=== PATIENT | male | born 1960 | race Caucasian/White ===

== ENCOUNTER 2017-07-04 10:23 | Emergency (ER) | payer SELFPAY ==
[2017-07-04] MEDS ORDERED: methylPREDNISolone Sod Succ/PF 125 MG/2 ML VIAL ONE (10:59)
[2017-07-04] MEDS ORDERED: Acetaminophen 325 MG TAB ONE (10:59)
[2017-07-04 11:10] LABS: #Basophils 0.2 thou/uL (0.0-0.2); #Lymphocytes 0.9 thou/uL (1.20-3.40); #Monocytes 0.7 thou/uL (0.11-0.59); #Neutrophils 15.7 thou/uL (1.40-6.50); %Basophils 1.4 % (0.0-1.0); %Lymphocytes 5.1 % (21.0-51.0); %Monocytes 3.7 % (0.0-10.0); %Neutrophils 89.7 % (42.0-75.0); Hemoglobin 15.9 g/dL (14.0-18.0); Mean Corpuscular HGB CONC 33.6 g/dL (32.0-36.0); Mean Corpuscular Hemoglobin 29.7 pg (27.0-31.0); Mean Corpuscular Volume 88.5 fl (80.0-94.0); Mean Platelet Volume 6.4 fL (7.4-10.4); Platelet Count 247 thou/uL (130-400); RBC Distribution Width 11.3 % (11.5-14.5); Red Blood Cell (RBC) Count 5.35 mill/uL (4.70-6.10); White Blood Cell (WBC) Count 17.5 thou/uL (4.8-10.8)
[2017-07-04 11:18] LABS: pH (venous) 7.45 (7.35-7.45)
[2017-07-04 11:19] LABS: Base Excess -1.1 mEq/L (-2 - +2); Hemoglobin (Hb) 16.5 g/dL (13.1-17.2)
[2017-07-04 11:21] LABS: ALT (SGPT) 15 U/L (8-55); AST (SGOT) 14 U/L (5-34); Albumin 3.8 g/dL (3.5-5.0); Alkaline Phosphatase 83 U/L (40-150); Anion Gap 16 mmol/L (10-20); BUN (Urea Nitrogen) 9 mg/dL (8.4-25.7); Bilirubin, Total 0.8 mg/dL (0.2-1.2); Calc. Creatinine Clearance 0 mL/min (70-130); Calcium 9.1 mg/dL (7.8-10.44); Carbon Dioxide 22 mmol/L (22-29); Chloride 99 mmol/L (98-107); Estimated GFR-MDRD 89; Globulin 3.5 g/dL (2.4-3.5); Glucose 118 mg/dL (70-105); Potassium 3.3 mmol/L (3.5-5.1); Protein, Total 7.3 g/dL (6.0-8.3); Sodium 134 mmol/L (136-145)
[2017-07-04 11:25] LABS: CKMB 0.3 ng/mL (0-6.6); Troponin I Less than 0.010 ng/mL (< 0.028)
[2017-07-04] MEDS ORDERED: Azithromycin 500 MG VIAL ONE (11:26)
[2017-07-04] MEDS ORDERED: cefTRIAXone\\ROCEPHIN 2 GM VIAL ONE (11:26)
--- NOTE | 2017-07-04 12:15 | RAD ---
PORTABLE CHEST: DATE: 07/04/17. FINDINGS: An AP portable film at 1043 is presented with no prior films available for comparison. Emphysematous changes are present throughout the lung, probably with some apical bullae. There is some increase i n the basilar markings bilaterally. This could be fibrosis, infiltrate, or both. Depending upon the clinical presentation, further followup may be needed. The central pulmonary arteries are slightly prominent in size which can sometimes signify changes of pulmonary arterial hypertension. The heart is normal in size. There are no congestive changes or pleural effusions. Faint calcification is see n in the aortic arch. IMPRESSION: 1. Chronic obstructive pulmonary disease. 2. Increasing basilar markings. Fibrosis versus infiltrate versus both. See discussion above. POS: HOME
== END 2017-07-04 12:12 | disposition short-term general hospital (02) ==
LOC: BURERS 10:23
DX: J96.00 Acute respiratory failure, unspecified whether with hypoxia or hypercapnia (principal); J18.9 Pneumonia, unspecified organism; K21.9 Gastro-esophageal reflux disease without esophagitis; F17.220 Nicotine dependence, chewing tobacco, uncomplicated; Z79.899 Other long term (current) drug therapy
CPT/HCPCS: 36415; 71045; 80053; 82553; 82805; 83605; 83880; 84484; 85025; 85379; 87040; 93005; 96365; 96375; J0456; J0696; J2930; J7620

== ENCOUNTER 2018-05-30 08:34 | Emergency (ER) | payer SELFPAY ==
[2018-05-30] MEDS ORDERED: Nitroglycerin 0.4 MG TAB (25 Tab Bottle) ONE (08:42)
[2018-05-30 08:47] LABS: #Basophils 0.1 thou/uL (0.0-0.2); #Monocytes 0.6 thou/uL (0.11-0.59); #Neutrophils 12.6 thou/uL (1.40-6.50); %Basophils 0.6 % (0.0-1.0); %Eosinophils 0.2 % (0.0-10.0); %Lymphocytes 7.3 % (21.0-51.0); %Monocytes 4.2 % (0.0-10.0); %Neutrophils 87.8 % (42.0-75.0); Hemoglobin 15.4 g/dL (14.0-18.0); Mean Corpuscular HGB CONC 33.8 g/dL (32.0-36.0); Mean Corpuscular Hemoglobin 29.3 pg (27.0-31.0); Mean Corpuscular Volume 86.7 fL (78.0-98.0); Mean Platelet Volume 7.1 fL (7.4-10.4); Platelet Count 250 thou/uL (130-400); RBC Distribution Width 11.4 % (11.5-14.5); Red Blood Cell (RBC) Count 5.24 mill/uL (4.70-6.10); White Blood Cell (WBC) Count 14.3 thou/uL (4.8-10.8)
[2018-05-30 09:07] LABS: ALT (SGPT) 24 U/L (8-55); AST (SGOT) 12 U/L (5-34); Albumin 3.9 g/dL (3.5-5.0); Alkaline Phosphatase 71 U/L (40-150); Anion Gap 13 mmol/L (10-20); BUN (Urea Nitrogen) 11 mg/dL (8.4-25.7); Bilirubin, Total 0.8 mg/dL (0.2-1.2); CK (CPK) 52 U/L (30-200); CKMB 0.9 ng/mL (0-6.6); Calc. Creatinine Clearance 0 mL/min (70-130); Calcium 9.7 mg/dL (7.8-10.44); Carbon Dioxide 24 mmol/L (22-29); Chloride 105 mmol/L (98-107); Estimated GFR-MDRD 90; Glucose 114 mg/dL (70-105); Lipase 12 U/L (8-78); Potassium 3.6 mmol/L (3.5-5.1); Protein, Total 6.9 g/dL (6.0-8.3); Sodium 138 mmol/L (136-145); Troponin I Less than 0.010 ng/mL (< 0.028)
[2018-05-30] MEDS ORDERED: Sodium Chloride 0.9% 100 ML ONE (10:20)
[2018-05-30] MEDS ORDERED: cefTRIAXone\\ROCEPHIN 2 GM VIAL ONE (10:20)
--- NOTE | 2018-05-30 11:43 | RAD ---
AP PORTABLE CHEST: 05/30/2018 0821 HOURS COMPARISON: 07/04/2017 FINDINGS: COPD is noted, as usual. There is a new infiltrate in the right base and possibly in the left base a s well. The upper lobes are clear. There is no vascular congestion, edema, or pleural effusion. He art size is normal. Trachea is midline. IMPRESSION: Chronic obstructive pulmonary disease with evidence of basilar pneumonia, particularly in the right b ase. See CT report to follow. POS: HOME
--- NOTE | 2018-05-30 11:43 | CT ---
CT ANGIO OF CHEST WITH CONTRAST: Date: 05/30/[address] of the chest was performed for evaluation of chest pain and cough. Axial slices were acquir ed, then oblique coronal reformations through the pulmonary arteries were done, in addition to straig coronal and sagittal reconstructions. FINDINGS: There is good opacification of the pulmonary arteries. There were no defects to suggest pulmonary emb bipin. The aorta showed no sign of aneurysm or dissection. No pericardial effusion noted. No mediastina l mass or excessive adenopathy. The patient has severe COPD and there are fibrotic changes, particularly in the lower parts of the jenn ngs. There is a consolidation in right middle lobe and in the lingula of the left upper lobe. These p resumably constitute pneumonia. There are no effusions. Scans into the upper abdomen showed no adrenal masses. Gallstones were incidentally noted in the gall bladder. There are a few subcentimeter cystic lesions in the liver, the largest of which is 9.0 mm in size. IMPRESSION: 1. Severe COPD with evidence of right middle lobe and lingular pneumonia. 2. No evidence of pulmonary embolism. Report called to Dr. Alvarez at 1012 hours on 05/30/18. CODE CR. POS: HOME
== END 2018-05-30 10:47 | disposition short-term general hospital (02) ==
LOC: BURERS 08:34
DX: J18.9 Pneumonia, unspecified organism (principal); J44.9 Chronic obstructive pulmonary disease, unspecified; K21.9 Gastro-esophageal reflux disease without esophagitis; F17.220 Nicotine dependence, chewing tobacco, uncomplicated; I10 Essential (primary) hypertension; Z79.899 Other long term (current) drug therapy
CPT/HCPCS: 36415; 71045; 71275; 80053; 82553; 83605; 83690; 84484; 85025; 87040; 93005; 96361; 96365; J0696; J7050

== ENCOUNTER 2023-08-26 14:25 | Emergency (ER) | payer SELFPAY ==
[2023-08-26 15:07] LABS: Bilirubin Negative (Negative); Blood, Urine Negative (Negative); Clarity Clear (Clear); Glucose, Urine (Dipstick) Negative (Negative); Ketone, Urine Negative (Negative); Leukocyte Negative (Negative); Nitrite Positive (Negative); Protein, Urine (Dipstick) Negative (Neg-Trace); Specific Gravity, Urine 1.015 (1.005-1.030); Urobilinogen 0.2 mg/dL (Less than 2)
[2023-08-26 15:11] LABS: Bacteria/HPF 1+ HPF (None Seen); CAUTI Indications for Culture Pelvic or flank pain; RBC/HPF 0-3 HPF (0-3); Squamous Epithelial 0-3 HPF (0-3); WBC/HPF None Seen HPF (0-3)
[2023-08-26 15:13] LABS: Urine Culture Reflex No No
== END 2023-08-26 15:47 | disposition home or self-care (01) ==
LOC: BURERS 14:25
DX: R33.9 Retention of urine, unspecified (principal); I10 Essential (primary) hypertension; Z87.891 Personal history of nicotine dependence
CPT/HCPCS: 51702; 81001; 99283

== ENCOUNTER 2023-12-24 11:51 | Emergency (ER) | payer BC ==
[2023-12-24 12:35] LABS: #Basophils 0.1 thou/uL (0.0-0.2); #Eosinphils 0.1 thou/uL (0.0-0.7); #Lymphocytes 1.3 thou/uL (1.20-3.40); #Monocytes 0.4 thou/uL (0.11-0.59); #Neutrophils 4.9 thou/uL (1.40-6.50); %Basophils 1.1 % (0.0-1.0); %Eosinophils 1.6 % (0.0-10.0); %Lymphocytes 18.7 % (21.0-51.0); %Monocytes 6.4 % (0.0-10.0); %Neutrophils 72.2 % (42.0-75.0); Hematocrit 45.6 % (42.0-52.0); Hemoglobin 14.7 g/dL (14.0-18.0); Mean Corpuscular HGB CONC 32.1 g/dL (32.0-36.0); Mean Corpuscular Hemoglobin 28.9 pg (27.0-31.0); Mean Corpuscular Volume 89.9 fl (78.0-98.0); Mean Platelet Volume 6.8 fL (7.4-10.4); Platelet Count 302 10x3/uL (130-400); RBC Distribution Width 11.4 % (11.5-14.5); Red Blood Cell (RBC) Count 5.08 mill/uL (4.70-6.10); White Blood Cell (WBC) Count 6.8 10x3/uL (4.8-10.8)
[2023-12-24 12:47] LABS: ALT (SGPT) 11 U/L (8-55); AST (SGOT) 11 U/L (5-34); Albumin 3.6 g/dL (3.4-4.8); Alkaline Phosphatase 251 U/L (40-110); Anion Gap 13 mmol/L (10-20); BUN (Urea Nitrogen) 11 mg/dL (8.4-25.7); Bilirubin, Total 0.3 mg/dL (0.2-1.2); Calc. Creatinine Clearance 0 mL/min (70-130); Calcium 9.3 mg/dL (7.8-10.44); Carbon Dioxide 23 mmol/L (23-31); Chloride 107 mmol/L (98-107); Estimated GFR 98; Globulin 2.6 g/dL (2.4-3.5); Glucose 170 mg/dL (80-115); Potassium 3.3 mmol/L (3.5-5.1); Protein, Total 6.2 g/dL (5.8-8.1); Sodium 140 mmol/L (136-145)
[2023-12-24 12:50] LABS: Troponin I Less than 0.010 ng/mL (< 0.028)
[2023-12-24] MEDS ORDERED: methylPREDNISolone Sod Succ/PF 125 MG/2 ML VIAL ONE (13:03)
[2023-12-24] MEDS ORDERED: Ipratropium/Albuterol 3 ML NEB ONE (13:03)
== END 2023-12-24 13:45 | disposition home or self-care (01) ==
LOC: BURERS 11:51
DX: J44.1 Chronic obstructive pulmonary disease with (acute) exacerbation (principal); I10 Essential (primary) hypertension; K21.9 Gastro-esophageal reflux disease without esophagitis; E78.00 Pure hypercholesterolemia, unspecified; Z79.899 Other long term (current) drug therapy; F17.220 Nicotine dependence, chewing tobacco, uncomplicated
CPT/HCPCS: 36415; 71046; 80053; 84484; 85025; 85379; 93005; 96374; J2930; J7620

== ENCOUNTER 2024-02-25 11:55 | Emergency (ER) | payer BC ==
[2024-02-25] MEDS ORDERED: Iopamidol 370 76% 100 ML VIAL ONE (12:12)
[2024-02-25] MEDS ORDERED: Pantoprazole 40 MG VIAL ONE (12:25)
[2024-02-25 12:45] LABS: Bilirubin Negative (Negative); Blood, Urine Negative (Negative); Clarity Clear (Clear); Glucose, Urine (Dipstick) Negative (Negative); Ketone, Urine Negative (Negative); Leukocyte Trace (Negative); Nitrite Negative (Negative); Protein, Urine (Dipstick) Negative (Neg-Trace); Specific Gravity, Urine 1.015 (1.005-1.030); Urobilinogen 0.2 mg/dL (Less than 2); pH, Urine 7.5 (5.0-9.0)
[2024-02-25 12:46] LABS: #Lymphocytes 0.9 thou/uL (1.20-3.40); #Monocytes 0.4 thou/uL (0.11-0.59); #Neutrophils 8.1 thou/uL (1.40-6.50); %Basophils 0.4 % (0.0-1.0); %Eosinophils 0.3 % (0.0-10.0); %Lymphocytes 9.3 % (21.0-51.0); %Monocytes 4.5 % (0.0-10.0); %Neutrophils 85.6 % (42.0-75.0); Hematocrit 45.1 % (42.0-52.0); Mean Corpuscular HGB CONC 33.2 g/dL (32.0-36.0); Mean Corpuscular Hemoglobin 28.9 pg (27.0-31.0); Mean Corpuscular Volume 87.1 fl (78.0-98.0); Mean Platelet Volume 6.3 fL (7.4-10.4); Platelet Count 271 10x3/uL (130-400); Red Blood Cell (RBC) Count 5.18 mill/uL (4.70-6.10); White Blood Cell (WBC) Count 9.5 10x3/uL (4.8-10.8)
[2024-02-25 12:52] LABS: Bacteria/HPF None Seen HPF (None Seen); CAUTI Indications for Culture Dysuria,urgency,freq; RBC/HPF None Seen HPF (0-3); Squamous Epithelial 0-3 HPF (0-3); WBC/HPF 0-3 HPF (0-3)
[2024-02-25 12:53] LABS: Urine Culture Reflex No No
[2024-02-25 13:00] LABS: ALT (SGPT) 13 U/L (8-55); AST (SGOT) 12 U/L (5-34); Albumin 3.6 g/dL (3.4-4.8); Alkaline Phosphatase 419 U/L (40-110); Anion Gap 17 mmol/L (10-20); BUN (Urea Nitrogen) 9 mg/dL (8.4-25.7); Bilirubin, Total 0.8 mg/dL (0.2-1.2); Calc. Creatinine Clearance 0 mL/min (70-130); Calcium 9.7 mg/dL (7.8-10.44); Carbon Dioxide 22 mmol/L (23-31); Chloride 102 mmol/L (98-107); Estimated GFR 100; Globulin 3.2 g/dL (2.4-3.5); Glucose 108 mg/dL (80-115); Lipase 11 U/L (8-78); Potassium 4.1 mmol/L (3.5-5.1); Protein, Total 6.8 g/dL (5.8-8.1); Sodium 137 mmol/L (136-145)
== END 2024-02-25 14:59 | disposition home or self-care (01) ==
LOC: BURERS 11:55
DX: R10.84 Generalized abdominal pain (principal); R30.0 Dysuria; R93.2 Abnormal findings on diagnostic imaging of liver and biliary tract; I10 Essential (primary) hypertension; J43.9 Emphysema, unspecified; J44.9 Chronic obstructive pulmonary disease, unspecified; E78.00 Pure hypercholesterolemia, unspecified; F17.220 Nicotine dependence, chewing tobacco, uncomplicated; Z79.899 Other long term (current) drug therapy
CPT/HCPCS: 36415; 74177; 80053; 81001; 83690; 85025; 96374; J2470; Q9967

== ENCOUNTER 2024-07-17 16:58 | Outpatient (CLI) | payer OTHER | END 2024-07-17 16:59 | disposition home or self-care (01) | LOC: BURRAD 16:58 | PROVIDERS: ATTEND Nurse Practitioner Family | DX: R07.81 Pleurodynia (principal); J92.9 Pleural plaque without asbestos; J90 Pleural effusion, not elsewhere classified; J43.9 Emphysema, unspecified; J98.4 Other disorders of lung | CPT/HCPCS: 71046 ==